=== PATIENT | female | born 1935 | race Caucasian/White ===

== ENCOUNTER 2019-04-01 09:36 | Inpatient (IN) ==
[2019-04-01] MEDS ORDERED: ONDANSETRON 4 MG/2 ML VIAL IV STA (10:13)
[2019-04-01] MEDS ORDERED: SODIUM CHLORIDE 0.9% 500 ML IV STA (10:13)
[2019-04-01 10:38] LABS: Basophils % 0.2 % (0.0-0.8); Eosinophils % 0.1 % (0.00-10.9); Hematocrit 44.5 VOL% (35.7-47.0); Hemoglobin 14.3 GM/DL (12.0-16.0); Immature Granulocytes % 0.5 %; Immature Granulocytes Absolute 0.08 #; Lymphocytes # 1.4 10*3/uL (1.4-4.0); Lymphocytes % 8.8 % (21.3-54.2); Mean Corpuscular HGB Conc 32.1 GM/DL (32-36); Mean Corpuscular Volume 84.8 FL (87-102); Mean Platelet Volume 9.4 FL (9.6-12.0); Monocytes % 3.4 % (1.7-12.7); Platelet Count 243 T/CUMM (130-400); Red Blood Count 5.25 MC/CUMM (3.8-5.5); Red Cell Distribution Width 14.2 % (9.3-17.3); White Blood Count 16.3 T/CUMM (4-12)
[2019-04-01 11:00] LABS: Hypochromasia 1+; Platelet Estimate Adequate
[2019-04-01 11:01] LABS: Albumin 3.8 G/DL (3.4-5.0); Bilirubin,Total 0.8 MG/DL (0.2-1.0); Calcium 9.4 MG/DL (8.5-10.1); Osmolality,Calculated 285.3 MOS/KG (273-304); Total Protein 7.2 G/DL (6.4-8.3)
[2019-04-01 11:39] LABS: Apearance,Urine Clear (Clear); Bacteria,Urine Occasional /HPF (Few); Bilirubin,Urine Negative (Negative); Blood, Urine Trace mg/dL (Negative); Glucose,Urine (UA) Negative (Negative); Hyaline Casts,Urine 1 /LPF (0-3); Ketones,Urine 25 mg/dL (Negative); Mucus,Urine Few /LPF (Occasional); Nitrite,Urine Negative (Negative); Protein,Urine >=500 MG/DL; Squamous Epithelial Cell,Urine Occasional /HPF (0-10); Urine Color Yellow (Yellow); Urine Urobilinogen 0.2 EU/DL (0.2-1.0); WBC,Urine <1 /HPF (0-6)
[2019-04-01] MEDS ORDERED: ACETAMINOPHEN 325 MG TABLET PO PRN (11:45)
[2019-04-01] MEDS ORDERED: PIPERACILLIN/TAZOBACTAM 3,375 MG in SODIUM CHLORIDE 0.9% 100 ML IV STA (11:45)
[2019-04-01] MEDS: SODIUM CHLORIDE 0.9% 1,000 ML IV SCH ×2 (13:28→22:03)
[2019-04-01] MEDS ORDERED: DICYCLOMINE 10 MG CAPSULE PO PRN (13:59)
[2019-04-01] MEDS ORDERED: FUROSEMIDE 20 MG TABLET PO PRN (13:59)
[2019-04-01] MEDS ORDERED: ALPRAZolam 0.5 MG TABLET PO PRN (14:30)
[2019-04-01] MEDS: ONDANSETRON 4 MG/2 ML VIAL IV PRN (14:46)
[2019-04-01] MEDS: traMADol 50 MG TABLET PO PRN (14:48)
[2019-04-01] MEDS: metroNIDAZOLE INJ 500 MG in PREMIX 1 EACH IV SCH (20:18)
[2019-04-01] MEDS: AMITRIPTYLINE 25 MG TABLET PO SCH (20:19)
[2019-04-01] MEDS: ZALEPLON 5 MG CAPSULE PO PRN (20:34)
[2019-04-02] MEDS: VANCOMYCIN 50 MG/ML 60 ML/BOTTLE PO SCH ×5 (00:13→23:50)
[2019-04-02] MEDS: metroNIDAZOLE INJ 500 MG in PREMIX 1 EACH IV SCH ×3 (03:03→20:25)
[2019-04-02] MEDS: LEVOTHYROXINE 125 MCG TABLET PO SCH (05:59)
[2019-04-02] MEDS: SODIUM CHLORIDE 0.9% 1,000 ML IV SCH ×3 (06:01→23:13)
[2019-04-02] MEDS: traMADol 50 MG TABLET PO PRN (06:03)
[2019-04-02] MEDS: LOSARTAN 50 MG TABLET PO SCH (09:50)
[2019-04-02] MEDS: PANTOPRAZOLE 40 MG TABLET PO SCH (09:50)
[2019-04-02] MEDS: amLODIPine 5 MG TABLET PO SCH (09:50)
[2019-04-02] MEDS: FLUTICASONE 50 MCG NASAL SPRAY 16 GM BOTTLE BOTH NARES SCH (09:51)
[2019-04-02] MEDS: ONDANSETRON 4 MG/2 ML VIAL IV PRN (14:04)
[2019-04-02] MEDS: AMITRIPTYLINE 25 MG TABLET PO SCH (20:25)
[2019-04-02] MEDS: ZALEPLON 5 MG CAPSULE PO PRN (23:10)
[2019-04-03] MEDS: metroNIDAZOLE INJ 500 MG in PREMIX 1 EACH IV SCH (04:10)
[2019-04-03] MEDS: VANCOMYCIN 50 MG/ML 60 ML/BOTTLE PO SCH ×3 (06:05→18:41)
[2019-04-03] MEDS: LEVOTHYROXINE 125 MCG TABLET PO SCH (06:05)
[2019-04-03 08:14] LABS: Basophils % 0.4 % (0.0-0.8); Eosinophils # 0.1 10*3/uL (0.0-0.87); Hematocrit 38.5 VOL% (35.7-47.0); Hemoglobin 12.2 GM/DL (12.0-16.0); Immature Granulocytes % 0.5 %; Immature Granulocytes Absolute 0.06 #; Lymphocytes # 1.2 10*3/uL (1.4-4.0); Lymphocytes % 11.3 % (21.3-54.2); Mean Corpuscular HGB Conc 31.7 GM/DL (32-36); Mean Corpuscular Volume 85.6 FL (87-102); Mean Platelet Volume 9.4 FL (9.6-12.0); Monocytes % 4.7 % (1.7-12.7); Neutrophils % 82.1 % (38.7-73.9); Platelet Count 216 T/CUMM (130-400); Red Cell Distribution Width 14.2 % (9.3-17.3)
[2019-04-03 08:46] LABS: Albumin 2.8 G/DL (3.4-5.0); Bilirubin,Total 0.5 MG/DL (0.2-1.0); Calcium 8.4 MG/DL (8.5-10.1); Osmolality,Calculated 286.7 MOS/KG (273-304)
[2019-04-03] MEDS: SODIUM CHLORIDE 0.9% 1,000 ML IV SCH ×2 (08:52→18:42)
[2019-04-03] MEDS: LACTOBACILLUS ACIDOPHILUS/BULGARICUS CAPLET PO SCH (08:54)
[2019-04-03] MEDS: LOSARTAN 50 MG TABLET PO SCH (08:55)
[2019-04-03] MEDS: PANTOPRAZOLE 40 MG TABLET PO SCH (08:55)
[2019-04-03] MEDS: amLODIPine 5 MG TABLET PO SCH (08:55)
[2019-04-03] MEDS: FLUTICASONE 50 MCG NASAL SPRAY 16 GM BOTTLE BOTH NARES SCH (08:57)
[2019-04-03] MEDS ORDERED: MAGNESIUM CHLORIDE 64 MG TABLET PO ONE (13:00)
[2019-04-03] MEDS: POTASSIUM CHLORIDE 20 MEQ TABLET PO SCH ×2 (13:34→20:33)
[2019-04-03] MEDS: AMITRIPTYLINE 25 MG TABLET PO SCH (20:33)
[2019-04-03] MEDS: ZALEPLON 5 MG CAPSULE PO PRN (22:36)
[2019-04-04] MEDS: VANCOMYCIN 50 MG/ML 60 ML/BOTTLE PO SCH ×3 (00:35→12:34)
[2019-04-04] MEDS: SODIUM CHLORIDE 0.9% 1,000 ML IV SCH (00:36)
[2019-04-04] MEDS: LEVOTHYROXINE 125 MCG TABLET PO SCH (06:10)
[2019-04-04] MEDS: LACTOBACILLUS ACIDOPHILUS/BULGARICUS CAPLET PO SCH (09:23)
[2019-04-04] MEDS: amLODIPine 5 MG TABLET PO SCH (09:23)
[2019-04-04] MEDS: PANTOPRAZOLE 40 MG TABLET PO SCH (09:23)
[2019-04-04] MEDS: LOSARTAN 50 MG TABLET PO SCH (09:23)
[2019-04-04] MEDS: POTASSIUM CHLORIDE 20 MEQ TABLET PO SCH (09:23)
[2019-04-04] MEDS: FLUTICASONE 50 MCG NASAL SPRAY 16 GM BOTTLE BOTH NARES SCH (09:24)
[2019-04-04 11:36] VITALS: BP 151/82
== END 2019-04-04 12:41 | disposition home health service (06) | DRG 371 ==
LOC: N.ED 09:36 → N.EDINP 11:44 → N.2E 13:10
PROVIDERS: ADMIT Family Medicine; ATTEND Family Medicine